=== PATIENT | male | born 1975 | race Caucasian/White ===

== ENCOUNTER 2018-08-22 21:39 | Emergency (ER) | payer SELFPAY ==
[2018-08-22 21:40] VITALS: BP 122/77; PULSE 105; RESP 15; TEMP 36.6; O2SAT 96; BMI 23.6
[2018-08-22] MEDS: Tetracaine 0.5% Ophthalmic Bottle 1 DRP LEFT EYE (22:40)
--- NOTE | 2018-08-22 22:47 | ED.VISSUMM ---
- ER Visit Summary Date of Service: 08/22/18 Chief Complaint: Foreign body sensation left eye History of Present Illness: The patient is a 42 M who presents with foreign body sensation in his left eye that began yesterday. Patient states he was grinding plastic yesterday and felt something go into his eye. Patient was wearing his regular glasses but not safety glasses. Patient states the pain is worse today. Patient admits to some photophobia and redness to his left eye. Patient admits to some mild blurred vision. Patient denies any other visual changes. Physical Examination: Vital signs are stable. Patient is afebrile. Patient is in no acute distress. Pupils are equal, round, and reactive to light bilaterally. Extra ocular muscles are intact. Conjunctiva was injected on the left. There is a rust ring noted in the lateral aspect of the left cornea at approximately 3 o'clock position. There are no foreign bodies noted. There are no other abrasions noted. Anterior chamber is clear. Patient was unable to tolerate funduscopic examination. Emergency Department Course and Treatment: Tetracaine was applied to the left eye. The rust ring was partially removed with ophthalmic palak. Patient was given Gentamicin ophthalmic drops. Patient was instructed to apply the drops every 4 hours while awake. 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 Patient refused tetanus immunization. Patient understood and was agreeable with the plan. All questions were answered. Disposition: Discharge home Impression: Corneal abrasion left eye This note was generated with [employer] dictation software. It may contain incorrect words, spelling, and punctuation that were not noted in review of the chart prior to signing ED Disposition - Plan for ED Patient: Disposition: Home or Assisted Living Chief Complaint: Eye Problem Diagnosis: Corneal abrasion, left, Corneal rust ring of left eye Instructions: ED Foreign Body Cornea, ED Foreign Body Cornea W Rust Ring Referrals: Terrell Lamb MD [Primary Care Provider] -
[2018-08-22 23:37] VITALS: BP 129/76; PULSE 98; RESP 16; O2SAT 99
[2018-08-22] MEDS: Gentamicin Sulfate 1 OPTH.BTL 2 DRP LEFT EYE (23:37)
== END 2018-08-22 23:38 | disposition home or self-care (01) ==
PROVIDERS: Emergency Provider Emergency Medicine; Family Provider Family Medicine; PCP Family Medicine
DX: S05.02XA Injury of conjunctiva and corneal abrasion without foreign body, left eye, initial encounter (principal); X58.XXXA Exposure to other specified factors, initial encounter; Y93.89 Activity, other specified; Y92.89 Other specified places as the place of occurrence of the external cause; Y99.8 Other external cause status
CPT/HCPCS: 99284

== ENCOUNTER 2024-03-27 21:42 | Emergency (ER) | payer SELFPAY, OTHER ==
[2024-03-27 21:42] VITALS: BP 148/89; PULSE 96; RESP 16; TEMP 36.6; O2SAT 100; BMI 21.9
--- NOTE | 2024-03-27 22:34 | EX.ED.VIS.EY ---
HPI History of Present Illness Chief Complaint: Eye Problem PFSH PFS Medical History no medical history Home Medications ?Medication ?Instructions ?Recorded ?Last Taken ?Type ciprofloxacin HCl 0.3 % eye drops 2 drp LEFT EYE Q6H 3 days #10 mL 03/27/24 Unknown Rx ketorolac 0.4 % eye drops 1 drp LEFT EYE Q6H PRN pain 3 days 03/27/24 Unknown Rx #5 mL Allergy/AdvReac Type Severity Reaction Status Date / Time No Known Allergies Allergy Verified 03/27/24 21:45 Social History Smoking Status: Never smoker EXAM Physical Exam Const Vital Signs: 03/27/24 21:42 Temperature 97.8 F Temperature Source Temporal Pulse Rate 96 Respiratory Rate 16 Blood Pressure 148/89 H Blood Pressure Mean 108 Pulse Ox 100 Oxygen Delivery Method [place] [facility] [place] Medical decision making narrative: HISTORY OF PRESENT ILLNESS: 48-year-old male presents concern for foreign body in his eye. 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 Notes he is wearing contacts at the time. Denies decreased vision but notes pain and irritation. REVIEW OF SYSTEMS: Pertinent positives: Eye pain/irritation Pertinent negatives: Decreased vision PHYSICAL EXAM: Nursing triage notes reviewed, Vital signs reviewed Constitutional: please see [facility] HENT: MMM Eyes: Pupils equal round and reactive to light, Extraocular muscles intact, visual acuity 20/20 bilaterally, fluorescein staining revealed a small pinpoint corneal abrasion to the right side of the iris at the 9 o'clock position. No obvious Karlene sign. Slit-lamp exam did not reveal any evidence of retained foreign body or rust ring. Skin: No rash or lesions noted MEDICAL DECISION MAKING: Chief Complaint: Eye pain External records reviewed: Reviewed prior ED visit for corneal abrasion in 2019 Factors affecting care: History of corneal abrasion with rust ring [facility] Narrative: The patient was initially hemodynamically stable, afebrile and nontoxic-appearing. Visual acuity was 20/20 bilaterally. I considered the following differential diagnosis: Corneal abrasion, globe rupture, foreign body in eye Exam most consistent with a corneal abrasion. No evidence of globe rupture. No signs of foreign body on lid eversion or through slit-lamp exam. Risk and benefits of tetracaine were discussed the patient. Patient understood risk including corneal ulceration in the blindness. Patient decided to take tetracaine at home for as needed pain relief in addition to prescribed anti-inflammatory drops and antibiotics. Instructed not to wear contacts. Gave prompt ophthalmology follow-up. Discussed return precautions. The patient and/or family, caregivers express understanding. The patient and/or family, caregivers agrees with the plan. Shared decision making: I will have a discussion with the patient and or visitors regarding risk/benefits of further testing or admission. They will be made aware of of the risk/benefits inherent in this decision they will be given the opportunity to voice understanding. Total critical care time today provided was at least 0 minutes. This excludes separately billable procedures. Critical care time (if documented) is secondary to the patient having high probability of clinically significant/life threatening deterioration in the patient's condition which required my urgent intervention. Impression: 1. Eye pain 2 corneal abrasion Dispo: discharge This note was generated with [employer] dictation software. It may contain incorrect words, spelling, and punctuation that were not noted in review of the chart prior to signing. Discharge Plan Triage Chief Complaint: Eye Problem ED Provider: Ian Pedraza Dx/Rx/DC Orders Instructions: ED Corneal Abrasion Prescriptions: New ketorolac 0.4 % drops 1 drp LEFT EYE Q6H PRN (Reason: pain) 3 Days Qty: 5 0RF ciprofloxacin HCl 0.3 % drops 2 drp LEFT EYE Q6H 3 Days Qty: 10 0RF Primary Care Provider: Terrell Lamb Referrals: Sylwia Byrne MD [Med Staff - Active Staff] - Activity Restrictions/Additional Instructions: Thank you for trusting us with your care today! You have been diagnosed with a corneal abrasion. Please wear eye protection. Please take Tylenol (2 pills, 650 mg), ibuprofen (2 pills, 400 mg) every 6 hours as needed for pain and fever control. Please take anti-inflammatory drops as prescribed. Please take antibiotic drops as prescribed and until course is complete. Tetracaine eyedrops can be used 1 drop twice daily as needed for pain and irritation as well. Please return to the emergency department if your symptoms change or worsen. Please follow with your primary care physician for further outpatient evaluation and management. Print Language: Cymraes Disposition Disposition: Home, Self Care
[2024-03-27] MEDS: Tetracaine 0.5% Ophthalmic Bottle 1 DRP EACH EYE (23:01)
[2024-03-27] MEDS: Fluorescein 1 MG STRIP 1 STRIP EACH EYE (23:01)
[2024-03-27 23:09] VITALS: BP 119/79; PULSE 81; RESP 16; TEMP 36.7; O2SAT 99
== END 2024-03-27 23:22 | disposition home or self-care (01) ==
PROVIDERS: Emergency Provider Emergency Medicine; PCP Family Medicine; Visit Provider Emergency Medicine
DX: S05.00XA Injury of conjunctiva and corneal abrasion without foreign body, unspecified eye, initial encounter (principal); Z97.3 Presence of spectacles and contact lenses; W22.8XXA Striking against or struck by other objects, initial encounter; Y99.0 Civilian activity done for income or pay
CPT/HCPCS: 99284